=== PATIENT | male | born 1945 | race African-American/Black ===

== ENCOUNTER 2017-09-04 11:57 | Observation (INO) | payer OTHER ==
[2017-09-04] MEDS: ASPIRIN 81 MG TAB PO (12:37)
[2017-09-04 12:45] LABS: ADD MAN DIFF? NO
[2017-09-04 12:50] LABS: BASOPHILS % 0.7 % (0.0-2.0); EOSINOPHILS # 0.1 10^3/ul (0.0-0.5); EOSINOPHILS % 1.1 % (0.0-7.0); HEMATOCRIT 38.7 % (42.0-52.0); HEMOGLOBIN 12.6 g/dl (14.0-18.0); LYMPHOCYTES # 0.8 10^3/ul (0.8-2.9); LYMPHOCYTES % 14.6 % (15.0-51.0); MEAN CORPUSCULAR HEMOGLOBIN 27.9 pg (29.0-33.0); MEAN CORPUSCULAR HGB CONC 32.6 g/dl (32.0-37.0); MEAN CORPUSCULAR VOLUME 85.6 fl (82.0-101.0); MEAN PLATELET VOLUME 10.2 fl (7.4-10.4); MONOCYTE # 0.4 10^3/ul (0.3-0.9); NEUTROPHILS % 75.2 % (39.0-77.0); PLATELET COUNT 294 10^3/UL (140-415); RED BLOOD COUNT 4.52 10^6/ul (4.70-6.10); RED CELL DISTRIBUTION WIDTH 12.5 % (11.5-14.5)
[2017-09-04 12:50] LABS: WHITE BLOOD COUNT 5.4 10^3/ul (4.8-10.8)
[2017-09-04 13:29] LABS: ANION GAP 12 (8-16); BLOOD UREA NITROGEN 13 mg/dl (7-20); CALCIUM 9.3 mg/dl (8.4-10.2); CARBON DIOXIDE 26 mmol/L (21-31); CHLORIDE 104 mmol/L (97-110); CREATININE 0.91 mg/dl (0.61-1.24); GLUCOSE 128 mg/dl (70-220); POTASSIUM 4.4 mmol/L (3.5-5.1); SODIUM 138 mmol/L (135-144)
[2017-09-04 13:40] LABS: TROPONIN-I < 0.010 ng/ml (0.000-0.120)
[2017-09-04] MEDS ORDERED: DOCUSATE SODIUM 100 MG CAP PO (15:00)
[2017-09-04] MEDS ORDERED: ACETAMINOPHEN 325 MG TAB PO ×2 (15:00)
[2017-09-04] MEDS ORDERED: NACL 0.9% 3 ML SYG IV (15:00)
[2017-09-04] MEDS ORDERED: MAGNESIUM HYDROXIDE 30ML CUP PO (15:00)
[2017-09-04] MEDS ORDERED: ONDANSETRON 4 MG INJ IV ×2 (15:00)
[2017-09-04] MEDS ORDERED: BISACODYL 10 MG SUPP PR (15:00)
[2017-09-04] MEDS ORDERED: morphine 2 MG INJ IV (15:00)
[2017-09-04] MEDS ORDERED: NITROGLYCERIN (SL) 0.4 MG TAB SL (15:00)
[2017-09-04] MEDS ORDERED: DEXTROSE 50% 50 ML SYRINGE IV ×2 (15:30)
[2017-09-04] MEDS ORDERED: GLUCOSE GEL 15 GRAM TUBE PO ×2 (15:30)
[2017-09-04] MEDS ORDERED: GLUCAGON 1 MG INJ IM (15:30)
[2017-09-04] MEDS ORDERED: GLUCOSE GEL 15 GRAM TUBE BUCCAL (15:30)
[2017-09-04 15:42] LABS: D-DIMER 1007.41 ng/ml (<460)
[2017-09-04 15:58] LABS: FREE T4 (FREE THYROXINE) 1.75 ng/dl (0.78-2.44)
[2017-09-04] MEDS: INSULIN ASPART [NOVOLOG] 3 ML PEN SC ×2 (17:35→21:00)
[2017-09-04 18:47] LABS: CREATINE KINASE 22 IU/L (23-200)
[2017-09-04 19:00] LABS: CK INDEX 2.8
[2017-09-04 19:01] LABS: CK-MB 0.62 ng/ml (0.0-2.4); TROPONIN-I < 0.010 ng/ml (0.000-0.120)
[2017-09-04] MEDS: ATORVASTATIN 10 MG TAB PO (22:42)
[2017-09-04] MEDS: FAMOTIDINE 20 MG TAB PO (22:42)
[2017-09-05 01:15] LABS: CREATINE KINASE 22 IU/L (23-200)
[2017-09-05 01:27] LABS: CK INDEX 2.3
[2017-09-05 01:30] LABS: CK-MB 0.51 ng/ml (0.0-2.4); TROPONIN-I < 0.010 ng/ml (0.000-0.120)
[2017-09-05] MEDS: ACCU-CHEK XX (02:00)
[2017-09-05 06:40] LABS: CREATINE KINASE 22 IU/L (23-200)
[2017-09-05 06:41] LABS: HEMOGLOBIN A1C 8.2 % (0-5.9)
[2017-09-05 06:54] LABS: CK INDEX 2.4; CK-MB 0.53 ng/ml (0.0-2.4); TROPONIN-I < 0.010 ng/ml (0.000-0.120)
[2017-09-05 07:05] LABS: B-TYPE NATRIURETIC PEPTIDE 59 PG/ML (0-125)
[2017-09-05 07:11] LABS: FREE T4 (FREE THYROXINE) 1.58 ng/dl (0.78-2.44)
[2017-09-05 07:14] LABS: ALANINE AMINOTRANSFERASE 37 IU/L (13-69); ALBUMIN 3.7 g/dl (3.3-4.9); ALBUMIN/GLOBULIN RATIO 0.84; ALKALINE PHOSPHATASE 123 IU/L (42-121); ANION GAP 13 (8-16); ASPARTATE AMINO TRANSFERASE 29 IU/L (15-46); BILIRUBIN,INDIRECT 0.4 mg/dl (0-1.1); BILIRUBIN,TOTAL 0.4 mg/dl (0.2-1.3); BLOOD UREA NITROGEN 14 mg/dl (7-20); CALCIUM 9.3 mg/dl (8.4-10.2); CARBON DIOXIDE 24 mmol/L (21-31); CHLORIDE 106 mmol/L (97-110); CHOL/HDL RATIO 5.7 RATIO; CHOLESTEROL 120 mg/dl (100-200); CREATININE 0.84 mg/dl (0.61-1.24); GLUCOSE 124 mg/dl (70-220); HDL CHOLESTEROL 21 mg/dl (31-75); LDL CHOLESTEROL,CALCULATED 75 mg/dl; MAGNESIUM 1.8 mg/dl (1.7-2.5); POTASSIUM 4.3 mmol/L (3.5-5.1); SODIUM 139 mmol/L (135-144); TOTAL PROTEIN 8.1 g/dl (6.1-8.1); TRIGLYCERIDES 119 mg/dl (0-149)
[2017-09-05] MEDS: INSULIN ASPART [NOVOLOG] 3 ML PEN SC ×3 (07:35→17:24)
[2017-09-05] MEDS: FAMOTIDINE 20 MG TAB PO (08:29)
[2017-09-05] MEDS: ASPIRIN 81 MG TAB PO (08:29)
[2017-09-05] MEDS: ENOXAPARIN 40 MG/0.4 ML SYG SC (08:31)
[2017-09-05] MEDS: REGADENOSON 0.4 MG/5 ML SYG (14:10)
== END 2017-09-05 18:10 | disposition home or self-care (01) ==
LOC: E/R 11:57 → MS3 14:39
DX: R55 Syncope and collapse (principal); R07.89 Other chest pain; I10 Essential (primary) hypertension; E11.9 Type 2 diabetes mellitus without complications; E78.5 Hyperlipidemia, unspecified; Z79.84 Long term (current) use of oral hypoglycemic drugs; Z82.49 Family history of ischemic heart disease and other diseases of the circulatory system
CPT/HCPCS: 36415; 70450; 71045; 78452; 80048; 80053; 80061; 82550; 82553; 82962; 83036; 83735; 83880; 84439; 84443; 84484; 85025; 85378; 93005; 93017; 93306; 99285-25

== ENCOUNTER 2017-11-23 11:42 | Emergency (ER) | payer OTHER ==
[2017-11-23 12:36] LABS: ADD MAN DIFF? NO
[2017-11-23 12:45] LABS: BASOPHIL # 0.1 10^3/ul (0.0-0.1); BASOPHILS % 0.8 % (0.0-2.0); EOSINOPHILS # 0.1 10^3/ul (0.0-0.5); EOSINOPHILS % 0.8 % (0.0-7.0); HEMATOCRIT 39.7 % (42.0-52.0); HEMOGLOBIN 13.3 g/dl (14.0-18.0); LYMPHOCYTES # 1.1 10^3/ul (0.8-2.9); LYMPHOCYTES % 17.4 % (15.0-51.0); MEAN CORPUSCULAR HEMOGLOBIN 27.8 pg (29.0-33.0); MEAN CORPUSCULAR HGB CONC 33.5 g/dl (32.0-37.0); MEAN CORPUSCULAR VOLUME 83.1 fl (82.0-101.0); MEAN PLATELET VOLUME 10.2 fl (7.4-10.4); MONOCYTE # 0.4 10^3/ul (0.3-0.9); MONOCYTES % 5.9 % (0.0-11.0); NEUTROPHIL # 4.8 10^3/ul (1.6-7.5); NEUTROPHILS % 74.8 % (39.0-77.0); PLATELET COUNT 257 10^3/UL (140-415); RED BLOOD COUNT 4.78 10^6/ul (4.70-6.10); RED CELL DISTRIBUTION WIDTH 14.1 % (11.5-14.5)
[2017-11-23 12:45] LABS: WHITE BLOOD COUNT 6.4 10^3/ul (4.8-10.8)
[2017-11-23 13:00] LABS: ALANINE AMINOTRANSFERASE 18 IU/L (13-69); ALBUMIN 3.7 g/dl (3.3-4.9); ALBUMIN/GLOBULIN RATIO 0.88; ALKALINE PHOSPHATASE 89 IU/L (42-121); ANION GAP 13 (8-16); ASPARTATE AMINO TRANSFERASE 17 IU/L (15-46); BILIRUBIN,INDIRECT 0.4 mg/dl (0-1.1); BILIRUBIN,TOTAL 0.4 mg/dl (0.2-1.3); BLOOD UREA NITROGEN 13 mg/dl (7-20); CALCIUM 9.3 mg/dl (8.4-10.2); CARBON DIOXIDE 27 mmol/L (21-31); CHLORIDE 102 mmol/L (97-110); CREATININE 0.81 mg/dl (0.61-1.24); GLUCOSE 327 mg/dl (70-220); LIPASE 849 U/L (23-300); POTASSIUM 4.4 mmol/L (3.5-5.1); SODIUM 138 mmol/L (135-144); TOTAL PROTEIN 7.9 g/dl (6.1-8.1)
[2017-11-23] MEDS ORDERED: IODIXANOL LOCM 100 ML BTL (13:23)
[2017-11-23] MEDS ORDERED: SOD CHLORIDE 0.9% 100 ML (13:23)
[2017-11-23 14:05] LABS: ADD UMIC NO; UR ASCORBIC ACID NEGATIVE (NEGATIVE); UR BILIRUBIN (Dip) NEGATIVE (NEGATIVE); UR BLOOD (Dip) NEGATIVE (NEGATIVE); UR CLARITY CLEAR (CLEAR); UR COLOR YELLOW (YELLOW); UR GLUCOSE (Dip) 3+ mg/dL (NEGATIVE); UR KETONES (Dip) NEGATIVE (NEGATIVE); UR LEUKOCYTE ESTERASE (Dip) NEGATIVE Leu/ul (NEGATIVE); UR NITRITE (Dip) NEGATIVE (NEGATIVE); UR SPECIFIC GRAVITY (Dip) 1.025 (1.003-1.030); UR TOTAL PROTEIN (Dip) NEGATIVE (NEGATIVE); UR UROBILINOGEN (Dip) 1+ mg/dL (NEGATIVE)
== END 2017-11-23 15:15 | disposition home or self-care (01) ==
LOC: E/R 11:42
DX: K62.89 Other specified diseases of anus and rectum (principal); I10 Essential (primary) hypertension; E11.9 Type 2 diabetes mellitus without complications; Z79.82 Long term (current) use of aspirin; Z79.84 Long term (current) use of oral hypoglycemic drugs; Z87.891 Personal history of nicotine dependence
CPT/HCPCS: 36415; 74177; 80053; 81003; 83690; 85025; 99284-25